=== PATIENT | female | born 1940 | race Caucasian/White ===

== ENCOUNTER 2024-08-08 00:52 | Emergency (ER) | payer MEDICARE, OTHER ==
[2024-08-08] MEDS: Acetaminophen 500 MG Tab PO ONE (01:57)
[2024-08-08] MEDS: Bacitracin/Neomycin/Polymyxin B Oint 28.4 GM Tube TOP ONE (01:58)
== END 2024-08-08 02:27 | disposition home or self-care (01) ==
LOC: KA.ED 00:52
DX: S51.811A Laceration without foreign body of right forearm, initial encounter (principal); S61.411A Laceration without foreign body of right hand, initial encounter; S70.01XA Contusion of right hip, initial encounter; I10 Essential (primary) hypertension; I25.10 Atherosclerotic heart disease of native coronary artery without angina pectoris; E78.00 Pure hypercholesterolemia, unspecified; J44.9 Chronic obstructive pulmonary disease, unspecified; E03.9 Hypothyroidism, unspecified; E66.9 Obesity, unspecified; Z88.2 Allergy status to sulfonamides; Z88.8 Allergy status to other drugs, medicaments and biological substances; Z91.030 Bee allergy status; Z91.040 Latex allergy status; Z91.048 Other nonmedicinal substance allergy status; Z79.890 Hormone replacement therapy; Z79.899 Other long term (current) drug therapy; W19.XXXA Unspecified fall, initial encounter
CPT/HCPCS: 72170; 73090-RT; 73120-RT; 99283; A9270-GY